=== PATIENT | female | born 1985 | race Caucasian/White ===

== ENCOUNTER 2019-10-06 07:48 | Emergency (ER) | payer OTHER ==
[2019-10-06 07:54] VITALS: BP 136/86
--- NOTE | 2019-10-06 08:09 | ED ---
Allergic Reaction/Systemic - HPI Summary HPI Summary: 34-year-old female with significant past medical history of asthma and multiple food allergies presents to the emergency department today complaining of swelling of her mouth, lips, tongue which began yesterday afternoon after eating at [employer]. Patient states she has no involvement of the airway and has no shortness of breath were feeling of throat swelling. Patient states she took 50 mg of Benadryl yesterday and this morning prior to arrival. Patient at this time feels well, but desired to be evaluated as the lip swelling scared her. Patient otherwise feels well and denies fever, chest pain , abdominal pain, shortness of breath, rash, pain with urination. Surgical history family history is noncontributory. - History of Current Complaint Chief Complaint: EDAllergicReaction Time Seen by Provider: 10/06/19 07:56 Hx Obtained From: Patient Onset/Duration: Gradual Onset, Started days ago Timing: Constant Severity Initially: Mild Severity Currently: Mild Pain Intensity: 0 Pain Scale Used: 0-10 Numeric Character: Swelling Associated Signs And Symptoms: Negative: Abdominal Pain, Chest Pain, Cough Wheezing, Difficulty Breathing, Nausea, Rash, Throat Tightening - Related Hx Possible Reaction To: Unknown, Food - Allergies/Home Medications Allergies/Adverse Reactions: Allergies Allergy/AdvReac Type Severity Reaction Status Date / Time dairy Allergy Swelling Uncoded 10/06/19 07:54 Home Medications: Home Medications Azelastine 0.1% Nasal (NF) [Astepro 0.1% Nasal (NF)] 1 spray BOTH NARES DAILY [History Confirmed 10/06/19] Levothyroxine TAB* [Synthroid TAB*] 100 mcg PO DAILY 10/06/19 [History Confirmed 10/06/19] Mometasone/Formoter 200/5 MDI* [Dulera 200/5 MDI*] 2 puff INH BID 10/06/19 [ History Confirmed 10/06/19] PMH/Surg Hx/FS Hx/Imm Hx Infectious Disease History: No Infectious Disease History: Denies: Traveled Outside the [place] in Last 30 Days Review of Systems Constitutional: Negative Eyes: Negative ENT: Negative Cardiovascular: Negative Respiratory: Negative Gastrointestinal: Negative Genitourinary: Negative Positive: Edema. Negative: Arthralgia, Myalgia, Decreased ROM Skin: Negative Neurological/Mental Status: Negative Psychological: Normal All Other Systems Reviewed And Are Negative: Yes Physical Exam - Summary Physical Exam Summary: Patient is in no acute distress. No evidence of rash. No airway involvement with no posterior pharyngeal edema or tongue swelling. Patient has subjective swelling of the lips however there is no evidence of significant angioedema. Triage Information Reviewed: Yes Vital Signs On Initial Exam: Initial Vitals Temp Pulse Resp BP Pulse Ox 98.6 F 83 18 136/86 99 10/06/19 07:50 10/06/19 07:50 10/06/19 07:50 10/06/19 07:50 10/06/19 07:50 Vital Signs Reviewed: Yes Appearance: Positive: Well-Appearing, No Pain Distress, Well-Nourished Skin: Positive: Warm, Skin Color Reflects Adequate Perfusion Eyes: Positive: EOMI, CIELO ENT: Positive: Hearing grossly normal Respiratory/Lung Sounds: Positive: Clear to Auscultation, Breath Sounds Present Cardiovascular: Positive: RRR, S1, S2 Abdomen Description: Positive: Nontender, Soft Musculoskeletal: Positive: Strength/ROM Intact Neurological: Positive: Sensory/Motor Intact, Alert, Oriented to Person Place, Time, Speech Normal Psychiatric: Positive: Normal, Affect/Mood Appropriate AVPU Assessment: Alert Procedures - Sedation Patient Received Moderate/Deep Sedation with Procedure: No Diagnostics - Vital Signs Vital Signs Temp Pulse Resp BP Pulse Ox 10/06/19 07:50 98.6 F 83 18 136/86 99 - Laboratory Lab Statement: Any lab studies that have been ordered have been reviewed, and results considered in the medical decision making process. Allergic Reaction Course/Dx - Course Course Of Treatment: Patient was evaluated in the emergency department today for allergic reaction. Vitals noted. There is no evidence of airway involvement or severe angioedema. Patient took 50 mg of Benadryl prior to arrival. She is given additional 50 mg prednisone in the emergency department. She was offered a prescription for prednisone 30 mg to be taken daily however she stated she had the steroids at home and wanted to take hers. Patient was discharged with no evidence of significant anaphylaxis or angioedema and discharged to outpatient follow-up. Patient to take 30 mg prednisone daily for 4 days as well as 50 g Benadryl twice daily for 4 days. Patient likely experienced mild allergic reaction to unknown substance. Patient instructed to return to the emergency department immediately if she developed any new or worsening symptoms. - Diagnoses Differential Diagnosis/HQI/PQRI: Positive: Airway Obstruction, Anaphylaxis, Angioedema, Bronchospasm, Urticaria Provider Diagnoses: Allergic reaction Discharge ED - Sign-Out/Discharge Documenting (check all that apply): Patient Departure - Discharge Plan Condition: Stable Disposition: HOME Patient Education Materials: Food Allergy (ED) Referrals: Non Staff,Doctor [Medical Doctor] - Additional Instructions: You were seen in the emergency department today due to an allergic reaction. This appears to not require acute medical intervention at this time. Please take Benadryl 50 mg twice daily and 30 mg of prednisone daily for 4 days. Please follow up with your primary care provider for further evaluation and management. Please return to the emergency department immediately if you develop any new or worsening symptoms. - Billing Disposition and Condition Condition: STABLE Disposition: Home
== END 2019-10-06 08:46 | disposition home or self-care (01) ==
LOC: ED 07:48
DX: T78.40XA Allergy, unspecified, initial encounter (principal); X58.XXXA Exposure to other specified factors, initial encounter; Z91.011 Allergy to milk products; Z79.890 Hormone replacement therapy; Z79.899 Other long term (current) drug therapy
CPT/HCPCS: 99282; J7512